=== PATIENT | female | born 1965 | race Caucasian/White ===

== ENCOUNTER 2017-03-05 11:50 | Day surgery (SDC) | payer BC, OTHER ==
[2017-03-04 17:39] VITALS: BMI 28.9
[2017-03-05] MEDS ORDERED: ONDANSETRON 4 MG/2 ML VIAL IVPUSH PRN ×2 (14:52→15:46)
[2017-03-05] MEDS ORDERED: ACETAMINOPHEN 325 MG TABLET (FP) PO PRN (14:52)
[2017-03-05] MEDS ORDERED: IBUPROFEN 400 MG TABLET (FP) PO PRN (14:52)
[2017-03-05] MEDS ORDERED: oxyCODONE HCL 5 MG TABLET PO PRN ×2 (14:52→15:46)
--- NOTE | 2017-03-05 14:52 | HP ---
Admitting History and Physical - Admission History of Present Illness: 51 yo with postmenopausal bleeding Last menses 12/2015 On January 07 - had bleeding, light, dark brown spotting at first, then bled like a menses for one month s/p ultrasound with thickened endometrium 7 mm s/p D&C 2013 for menometrorrhagia Mother with hx/o endometrial cancer History Source: Patient Limitations to Obtaining History: No Limitations - Past Medical History Cardiovascular: No: HTN ...LMP: 02/17/14 ...LMP Comment: 12/2016 ...: 6 ...Para: 2 Heme/Onc: No: Anemia - Past Surgical History Additional Past Surgical History: CD Myomectomy D&C - Advance Directives Advance Directives: Yes: Health Care Proxy - Smoking History Smoking history: Never smoked Have you smoked in the past 12 months: No - Alcohol/Substance Use Hx Alcohol Use: No History of Substance Use: reports: None - Social History History of Recent Travel: No Home Medications - Allergies Allergies/Adverse Reactions: Allergies Allergy/AdvReac Type Severity Reaction Status Date / Time Penicillins Allergy Severe Verified 03/05/17 12:46 erythromycin base Allergy Intermediate Vomiting Verified 03/05/17 12:46 [Erythromycin Base] shellfish derived Allergy "ITCHY" Verified 03/05/17 12:46 DUST Allergy Uncoded 03/05/17 12:46 - Home Medications Home Medications: Ambulatory Orders NK [No Known Home Medication] 03/04/17 Family Disease History - Family Disease History Family History: Denies Review of Systems - Review of Systems Constitutional: reports: No Symptoms Neck: reports: No Symptoms Cardiovascular: reports: No Symptoms Respiratory: reports: No Symptoms Gastrointestinal: reports: No Symptoms Genitourinary: reports: No Symptoms Neurological: reports: No Symptoms Endocrine: reports: No Symptoms Hematology/Lymphatic: reports: No Symptoms Psychiatric: reports: No Symptoms Physical Examination Vital Signs: Vital Signs Temperature 98.8 F 03/05/17 12:44 Pulse Rate 70 03/05/17 12:44 Respiratory Rate 20 03/05/17 12:44 Blood Pressure 106/60 03/05/17 12:44 O2 Sat by Pulse Oximetry (%) 99 03/05/17 12:43 Constitutional: Yes: Well Nourished, No Distress, Calm Cardiovascular: Yes: Regular Rate and Rhythm Respiratory: Yes: Regular, CTA Bilaterally Gastrointestinal: Yes: Normal Bowel Sounds, Soft Musculoskeletal: Yes: WNL Extremities: Yes: WNL Edema: No Neurological: Yes: Alert, Oriented Psychiatric: Yes: Alert, Oriented Assessment/Plan 51 yo postmenopausal bleeding 1. Consents reviewed and signed 2. Risks / benefits / alternatives discussed 3. No antibiotics indicated 4. Proceed to OR
[2017-03-05] MEDS ORDERED: MIDAZOLAM HCL 2 MG/2 ML SINGLE DOSE VIAL ONE ×2 (14:55)
[2017-03-05] MEDS ORDERED: KETOROLAC TROMETHAMINE 30 MG/1 ML VIAL ONE (14:55)
[2017-03-05] MEDS ORDERED: LIDOCAINE HCL/PF 2% SDV 5ML VIAL ONE (14:55)
[2017-03-05] MEDS ORDERED: PROPOFOL 20 ML ONE (14:55)
[2017-03-05] MEDS ORDERED: DEXAMETHASONE SOD PHOSPHATE 4 MG/1 ML VIAL ONE (14:55)
[2017-03-05] MEDS ORDERED: LACTATED RINGERS SOLUTION 1,000 ML IV SCH ×2 (15:00→16:00)
--- NOTE | 2017-03-05 15:41 | OP ---
Operative Note - Note: Operative Date: 03/05/17 Pre-Operative Diagnosis: posmenopausal bleeding Operation: hysterscopy, dilation and curettage Findings: hypervascular polyp Post-Operative Diagnosis: Same as Pre-op Surgeon: Luz Maria Barone Anesthesiologist/INSECT CONTROL INSPECTOR: Kodi Reeves Anesthesia: General Estimated Blood Loss (mls): 10 Fluid Volume Replaced (mls): 800 Operative Report Dictated: Yes
[2017-03-05] MEDS ORDERED: PROMETHAZINE HCL 25 MG/1 ML VIAL IVPUSH PRN (15:46)
[2017-03-05 16:44] VITALS: TEMP 98.4
[2017-03-05 17:43] VITALS: BP 110/62; PULSE 65
--- NOTE | 2017-03-06 13:12 | OP ---
DATE OF OPERATION: 03/05/2017 ATTENDING PHYSICIAN RESPONSIBLE FOR SIGNING REPORT: Luz Maria Barone MD PREOPERATIVE DIAGNOSES: Postmenopausal bleeding, thickened endometrium. POSTOPERATIVE DIAGNOSES: Postmenopausal bleeding, thickened endometrium. SURGERY: Hysteroscopy, dilation and curettage. ANESTHESIA: Kodi Reeves MD SURGEON: Luz Maria Barone MD ESTIMATED BLOOD LOSS: 10. FLUIDS GIVEN: 800. URINE OUTPUT: Not recorded. INDICATION FOR PROCEDURE: Patient is a 51-year-old, 6, para 2 female with postmenopausal bleeding. Ultrasound showed a thickened endometrium. She was counseled regarding observation, medical and surgical management. She opted for surgical . She was counseled regarding risks, benefits, alternatives, and complications of the procedure including infection; bleeding; damage to surrounding organs such as bowel, bladder, ureters; uterine perforation. She expressed understanding, was brought to the operating room. DESCRIPTION OF PROCEDURE: When anesthesia was found to be adequate, patient was prepped and draped in normal sterile fashion, placed in dorsal lithotomy position using Madi stirrups. A Pisano retractor was placed in the posterior portion of the patient's vagina. The anterior portion of the vagina was retracted using a Pisano retractor. Cervix was identified and grasped using an Allis clamp. Patient was previously prepped with Cytotec. The cervix was gently dilated to accommodate a 2.5-mm hysteroscope. At this point in time, after dilation, blood started to extrude from the cervical canal. Hysteroscopy was performed. A polyp encompassing the entire endometrial cavity was noted with hypervascularity. A gentle sharp curetting was performed. All instruments were removed from the patient's vagina. Patient was awoken from anesthesia and brought to recovery room in stable condition. Ervin [id number]
--- NOTE | 2017-03-07 11:43 | PATH ---
Surgical Pathology Report Patient Name: BAM GANDHI [facility]. Rec. #: [id number] /Age/Gender: 1965 (Age: 51) / F Account: [id number] Location: [facility] SURGICAL Taken: 03/05/2017 Received: 03/06/2017 Reported: 03/07/2017 Physicians: Luz Maria Barone Specimen(s) Received ENDOMETRIAL CURETTINGS Clinical History Menorrhagia, irregular periods Final Diagnosis ENDOMETRIAL CURETTINGS, HYSTEROSCOPY/POLYPECTOMY: FRAGMENTS OF ENDOMETRIAL POLYP, LOWER UTERINE SEGMENT, AND BENIGN CERVICAL TISSUE. Electronically Signed Jerrica Love M.D. Gross Description Received in formalin labeled "endometrial curettings," is a 2.0 x 1.7 x 0.3 cm aggregate of rothman-brown soft tissue fragments. The formalin is filtered and the specimen is entirely submitted in one cassette. 03/06/201703/06/2017
== END 2017-03-05 17:48 | disposition home or self-care (01) ==
LOC: JASU-SURG 11:50
PROVIDERS: ATTEND Obstetrics & Gynecology
PROC: 0UDB8ZX Extraction of Endometrium, Via Natural or Artificial Opening Endoscopic, Diagnostic (ICD-10-PCS; principal; 2017-03-05 13:30)
DX: N95.0 Postmenopausal bleeding (principal)
CPT/HCPCS: 84703; 86850; 86900; 86901; 88305-TC; 94760

== ENCOUNTER 2020-06-01 07:18 | Day surgery (SDC) | payer BC, OTHER ==
[2020-05-23 09:06] VITALS: BMI 30.2
[2020-06-01] MEDS ORDERED: MIDAZOLAM HCL 2 MG/2 ML SINGLE DOSE VIAL ONE (08:26)
[2020-06-01] MEDS ORDERED: ROPIVACAINE HCL 0.5% 30ML VIAL ONE (08:26)
[2020-06-01] MEDS ORDERED: PROPOFOL 20 ML ONE (09:16)
[2020-06-01] MEDS ORDERED: DESFLURANE GAS 240 ML BOTTLE IH ONE (09:17)
[2020-06-01] MEDS ORDERED: ONDANSETRON 4 MG/2 ML VIAL ONE ×2 (10:06→11:17)
[2020-06-01] MEDS ORDERED: DEXAMETHASONE SOD PHOSPHATE 4 MG/1 ML VIAL ONE (10:06)
[2020-06-01] MEDS ORDERED: ceFAZolin SODIUM 1 GM VIAL ONE (10:06)
[2020-06-01] MEDS ORDERED: KETOROLAC TROMETHAMINE 30 MG/1 ML VIAL ONE (10:06)
[2020-06-01 12:08] VITALS: TEMP 97.9
[2020-06-01 13:34] VITALS: BP 114/65; PULSE 68
[2020-06-01] MEDS ORDERED: oxyCODONE HCL 5 MG TABLET PO PRN ×2 (14:03)
[2020-06-01] MEDS ORDERED: ONDANSETRON 4 MG/2 ML VIAL IVPUSH PRN (14:03)
[2020-06-01] MEDS ORDERED: LACTATED RINGERS SOLUTION 1,000 ML IV SCH (14:15)
== END 2020-06-01 13:15 | disposition home or self-care (01) ==
LOC: FASU 07:18
PROVIDERS: ATTEND Orthopaedic Surgery
PROC: 0MB14ZZ Excision of Right Shoulder Bursa and Ligament, Percutaneous Endoscopic Approach (ICD-10-PCS; 2020-06-01)
PROC: 0RNJ4ZZ Release Right Shoulder Joint, Percutaneous Endoscopic Approach (ICD-10-PCS; principal; 2020-06-01 10:06)
PROC: 0RQJ4ZZ Repair Right Shoulder Joint, Percutaneous Endoscopic Approach (ICD-10-PCS; 2020-06-01 10:06)
DX: S43.491A Other sprain of right shoulder joint, initial encounter (principal); M75.41 Impingement syndrome of right shoulder; M75.01 Adhesive capsulitis of right shoulder; M75.51 Bursitis of right shoulder; M75.81 Other shoulder lesions, right shoulder; Y93.89 Activity, other specified; Y92.9 Unspecified place or not applicable; Y99.9 Unspecified external cause status
CPT/HCPCS: 29806; 29823; C1713; 88304-TC; 94760

== ENCOUNTER 2022-10-31 04:02 | Day surgery (SDC) | payer BC ==
[2022-10-28 12:05] VITALS: BMI 30.2
[2022-10-31] MEDS ORDERED: PROPOFOL 40 ML ONE (09:46)
[2022-10-31] MEDS ORDERED: SUCCINYLCHOLINE CHLORIDE 200 MG/10 ML SYRINGE ONE (09:47)
[2022-10-31] MEDS ORDERED: MIDAZOLAM HCL 2 MG/2 ML SINGLE DOSE VIAL ONE ×2 (09:47→10:32)
[2022-10-31] MEDS ORDERED: ROPIVACAINE HCL 0.5% 30ML VIAL ONE (09:49)
[2022-10-31] MEDS ORDERED: DEXMEDETOMIDINE HCL 200 MCG/2 ML IVPB ONE (09:50)
[2022-10-31] MEDS ORDERED: DEXAMETHASONE SOD PHOSPHATE 10 MG/1 ML VIAL ONE (09:50)
[2022-10-31] MEDS ORDERED: LIDOCAINE HCL/PF 2% SDV 5ML VIAL ONE (10:56)
[2022-10-31] MEDS ORDERED: PROPOFOL 20 ML ONE (10:56)
[2022-10-31] MEDS ORDERED: ceFAZolin SODIUM 1 GM VIAL ONE (11:05)
[2022-10-31] MEDS ORDERED: DEXAMETHASONE SOD PHOSPHATE 4 MG/1 ML VIAL ONE (11:13)
[2022-10-31] MEDS ORDERED: ONDANSETRON 4 MG/2 ML VIAL ONE ×2 (11:13→12:17)
[2022-10-31] MEDS ORDERED: ceFAZolin SODIUM 1 GM VIAL IVPB ONE (11:15)
[2022-10-31] MEDS ORDERED: ONDANSETRON 4 MG/2 ML VIAL IVPUSH PRN (12:16)
[2022-10-31] MEDS ORDERED: ACETAMINOPHEN 1000 MG/100 ML BAG IVPB PRN (12:18)
[2022-10-31] MEDS ORDERED: ONDANSETRON 4 MG/2 ML VIAL IVPUSH ONE (12:18)
[2022-10-31] MEDS ORDERED: LACTATED RINGERS SOLUTION 1,000 ML IV SCH (12:30)
[2022-10-31] MEDS ORDERED: ACETAMINOPHEN INJECTION 100 ML IVPB ONE (12:36)
[2022-10-31] MEDS ORDERED: ACETAMINOPHEN 1000 MG/100 ML BAG IVPB ONE (12:38)
[2022-10-31 14:39] VITALS: RESP 18; TEMP 98
[2022-10-31 15:17] VITALS: BP 124/63; PULSE 60
== END 2022-10-31 15:40 | disposition home or self-care (01) ==
LOC: JASU-SURG 04:02
PROVIDERS: ATTEND Orthopaedic Surgery
PROC: 0RNKXZZ Release Left Shoulder Joint, External Approach (ICD-10-PCS; 2022-10-31)
PROC: 0RNK4ZZ Release Left Shoulder Joint, Percutaneous Endoscopic Approach (ICD-10-PCS; principal; 2022-10-31 10:30)
PROC: 0PBB4ZZ Excision of Left Clavicle, Percutaneous Endoscopic Approach (ICD-10-PCS; 2022-10-31 10:30)
DX: M75.42 Impingement syndrome of left shoulder (principal); M75.02 Adhesive capsulitis of left shoulder; S43.432A Superior glenoid labrum lesion of left shoulder, initial encounter; X58.XXXA Exposure to other specified factors, initial encounter; Y93.9 Activity, unspecified; Y92.9 Unspecified place or not applicable; Y99.9 Unspecified external cause status
CPT/HCPCS: 94760; J1100